=== PATIENT | female | born 1965 | race Caucasian/White ===

== ENCOUNTER 2021-05-02 13:10 | Outpatient (CLI) | payer BC ==
--- NOTE | 2021-05-02 16:49 | XRAY Report ---
PROCEDURE: Hand 3 View RT INDICATIONS: CONTUSION OF R HAND TECHNIQUE: 3 views of the hand(s) acquired. COMPARISON: None FINDINGS: Bones: Mildly displaced fracture of the proximal aspect of the proximal phalanx of the fifth digit. M oderately displaced and mildly inflated fracture of the proximal aspect of the proximal phalanx of th e digit. No suspicious bony lesions. Soft tissues: No suspicious soft tissue calcifications. IMPRESSION: Fourth and fifth digit fractures. Reviewed by: Fransisca Prince MD on 05/02/2021 4:48 PM PDT Approved by: Fransisca Prince MD on 05/02/2021 4:48 PM PDT Station ID: [id number]
== END 2021-05-02 23:59 | disposition home or self-care (01) ==
LOC: DI.N 13:10
PROVIDERS: ATTEND Nurse Practitioner
DX: S62.616A Displaced fracture of proximal phalanx of right little finger, initial encounter for closed fracture (principal); S62.614A Displaced fracture of proximal phalanx of right ring finger, initial encounter for closed fracture

== ENCOUNTER 2021-10-20 08:00 | Outpatient (CLI) | payer BC ==
--- NOTE | 2021-10-20 10:04 | XRAY Report ---
PROCEDURE: Foot 3 View LT INDICATIONS: LEFT FOOT PAIN TECHNIQUE: 3 views of the foot were acquired. COMPARISON: None FINDINGS: Bones: Moderate hallux valgus angulation noted with an angle of 25 degrees. No fractures or dislocat ions. No suspicious bony lesions. A fixation screw in the base of the fifth metatarsal is seen. Deg enerative changes noted in the interphalangeal joints and the first metatarsophalangeal joint. Soft tissues: No tibiotalar joint effusion. Achilles tendon appears normal. IMPRESSION: 1. No acute abnormality. 2. Hallux valgus deformity of the great toe with an angle of 25 degrees. 3. Degenerative changes. Reviewed by: Bakari Owen on 10/20/2021 10:02 AM [facility] Approved by: Bakari Owen on 10/20/2021 10:02 AM [facility] Station ID: [id number]
== END 2021-10-20 23:59 | disposition home or self-care (01) ==
LOC: DI.S 08:00
PROVIDERS: ATTEND Physician Assistant Medical
DX: M20.12 Hallux valgus (acquired), left foot (principal); M19.072 Primary osteoarthritis, left ankle and foot